=== PATIENT | female | born 1965 | race Hispanic/Latino ===

== ENCOUNTER → 2017-02-10 | Outpatient (CLI) | payer OTHER | END | disposition home or self-care (01) | LOC: GMAB 16:59 | PROVIDERS: ATTEND Family Medicine | DX: D50.9 Iron deficiency anemia, unspecified (principal); E53.8 Deficiency of other specified B group vitamins; Z00.00 Encounter for general adult medical examination without abnormal findings; R30.0 Dysuria; R10.13 Epigastric pain ==

== ENCOUNTER → 2017-02-18 | Outpatient (CLI) | payer OTHER ==
--- NOTE | 2017-02-18 16:21 | CT ---
EXAM DESCRIPTION: Abdoment/Pelvis w/o Contrast CLINICAL HISTORY: 51 years Female, HEMATURIA COMPARISON: None. TECHNIQUE: Transaxial images were obtained without intravenous or oral contrast media. Sagittal and coronal reconstruction was performed.This exam was performed according to our departmental dose-optimization program, which includes automated exposure control, adjustment of the mA and/or kV according to patient size and/or use of iterative reconstruction technique. FINDINGS: The lung bases are clear. Numerous calcified granulomas are seen throughout the spleen. The liver and gallbladder are normal in appearance. No biliary ductal dilatation is observed. No adrenal masses are detected. The pancreas is normal. Imaging of the kidneys reveals no evidence of hydronephrosis mass cyst or calcification. Calcific atherosclerotic changes observed in the abdominal aorta without evidence of aneurysmal dilatation. The appendix is identified and is normal in appearance. No bowel abnormality is seen. No inguinal region abnormality is detected. The patient is post hysterectomy. No stones are seen along the course of the distal ureters. IMPRESSION: 1. Hysterectomy. 2. No urinary tract calcifications are detected. Electronically signed by: Russell Comer MD 02/18/2017 4:20 PM CDT
== END | disposition home or self-care (01) ==
LOC: CT 13:44
PROVIDERS: ATTEND Family Medicine
DX: R31.21 Asymptomatic microscopic hematuria (principal)

== ENCOUNTER → 2017-02-19 | Outpatient (CLI) | payer OTHER | END | disposition home or self-care (01) | LOC: GMA 10:55 | PROVIDERS: ATTEND Nurse Practitioner Family | DX: L65.8 Other specified nonscarring hair loss (principal) ==

== ENCOUNTER → 2017-02-28 | Outpatient (CLI) | payer OTHER | LOC: US 09:03 | PROVIDERS: ATTEND Family Medicine | DX: E04.9 Nontoxic goiter, unspecified (principal) ==

== ENCOUNTER → 2017-03-31 | Outpatient (CLI) | payer OTHER ==
--- NOTE | 2017-04-01 10:12 | CT ---
EXAM DESCRIPTION: Chest w/o Contrast CLINICAL HISTORY: 51 years, Female, COUGH, SOLITARY PULMONARY NODULE COMPARISON: May 07, 2010. TECHNIQUE: Thin-section noncontrast axial CT images are obtained according to our protocol. Reconstructed MPR images are created and reviewed as well. This exam was performed according to our departmental dose-optimization program, which includes automated exposure control, adjustment of the mA and/or kV according to patient size and/or use of iterative reconstruction technique. FINDINGS: Noncontrast imaging of the chest demonstrates a low density peripherally calcified nodule or cyst involving the right thyroid lobe that has enlarged since prior 2010 study and now measures 3 cm in maximal diameter with modest mass effect upon the trachea. Thyroid sonography for further evaluation is recommended. LAD coronary calcification is present with normal sized heart. No pericardial effusion is seen in the upper abdomen is unremarkable with multiple small granulomatous calcifications within the spleen. A triangular approximate 3 cm long by a 13 mm wide noncalcified a tiny 2 mm granuloma at the right lung base along the diaphragm is noted. Density extends from the peripheral margin of the upper left hilum to a subpleural location in the posterior lateral right apical region of the right upper lobe. This is essentially unchanged from 2010 examination and likely represents an area of chronic scarring or mucus plugging and atelectasis. Particularly on thin section sagittal imaging very little change or progression is evident on comparison to lung window images. The area of change appears more prominent on the coronal images but likely this represents slice positioning. Possibility of one or 2 mm of enlargement in the seven year interval since prior study and may be present suggesting slightly greater mucus plugging or scarring but the appearance is not suggestive of a primary malignancy. On sagittal imaging the area of concern appears to extend over an approximate 4 cm length with a maximal transverse diameter of 10 to 13 mm. Additional or new nodules elsewhere within the right right or left lung is not apparent. No bony abnormalities are noted. IMPRESSION: 1. Abnormal right apical region with a persistent somewhat tubular and triangular shaped soft tissue density that extends from the upper right hilum into the posterior lateral right apex with very little if any change from previous 2010 study measuring is much is 4 cm in length and 10 to 13 mm in maximal diameter. An area of mucous plugging and atelectasis or chronic scarring is suspected within the appearance and relative stability very atypical for a pulmonary malignancy. No further evaluation is recommended. 2. 3 cm low-density peripherally calcified nodule or cyst enlarged in the right lobe of the thyroid. Thyroid sonography for further evaluation recommended mass effect upon the trachea is noted. 3. Moderate LAD coronary calcification. 4. Granulomatous calcifications throughout the spleen without focal mass. Electronically signed by: Selvin Peter MD 04/01/2017 10:10 AM CDT
== END | disposition home or self-care (01) ==
LOC: CT 14:04
PROVIDERS: ATTEND Physician Assistant
DX: E04.1 Nontoxic single thyroid nodule (principal); R91.1 Solitary pulmonary nodule; R05 Cough

== ENCOUNTER 2017-08-02 18:33 | Emergency (ER) | payer OTHER ==
--- NOTE | 2017-08-02 19:32 | ED.PDOC ---
History of Present Illness - General Chief Complaint: Fever Stated Complaint: weak,hurts all over Time Seen by Provider: 08/02/17 18:40 Source: patient - History of Present Illness Timing/Duration: yesterday Fever Severity/Quality: subjective Associated Symptoms: chest pain, cough, headache, muscle aches, nausea/vomiting , shortness of breath Review of Systems - Review of Systems Constitutional: States: chills, fever, malaise EENTM: States: nose congestion. Denies: throat pain Respiratory: States: cough, short of breath. Denies: wheezing Cardiology: States: chest pain - mild pleuritic L chest pain Gastrointestinal/Abdominal: States: nausea, vomiting. Denies: abdominal pain, diarrhea Genitourinary: Denies: dysuria Musculoskeletal: States: muscle pain. Denies: neck pain Skin: Denies: rash Neurological: States: headache Endocrine: Denies: flushing, increased thirst Hematologic/Lymphatic: Denies: swollen glands Past Medical History (General) - Patient Medical History Hx Stroke: No Hx Congestive Heart Failure: No Hx Hypertension: Yes Hx Diabetes: Yes Surgical History: Hysterectomy - Vaccination History Hx Tetanus, Diphtheria Vaccination: No Hx Influenza Vaccination: No Hx Pneumococcal Vaccination: Yes - Social History Hx Tobacco Use: No Hx Alcohol Use: No Hx Substance Use: No Hx Substance Use Treatment: No Hx Depression: No - Female History Patient : No Family Medical History - Family History Mother Family History: Unknown Living Status: Unknown Physical Exam - Physical Exam General Appearance: Alert, Lethargic, Well Hydrated Eye Exam: bilateral normal ENT Exam: pharynx normal, nasal congestion Neck: non-tender, full range of motion Respiratory: lungs clear, normal breath sounds, no respiratory distress Cardiovascular/Chest: normal peripheral pulses, regular rate, rhythm, no edema Extremity: no pedal edema Neurologic: alert, normal mood/affect, oriented x 3 Skin Exam: normal color, warm/dry Lymphatic: no adenopathy Departure - Departure Clinical Impression: Influenza A Disposition: Discharge to Home or Self Care Condition: Good Departure Forms: ED Discharge - Pt. Copy, Patient Portal Self Enrollment Referrals: Arsenio Rios MD [Primary Care Provider] - 1-2 Weeks Prescriptions: Oseltamivir Capsule [Tamiflu] 75 mg PO BID 5 Days #10 capsule Home Medications: Ambulatory Orders Lisinopril 40 mg PO BEDTIME 08/02/17 Oseltamivir Capsule [Tamiflu] 75 mg PO BID 5 Days #10 capsule 08/02/17 SITagliptin [Januvia] 50 mg PO DAILY 08/02/17
[2017-08-02] MEDS ORDERED: ONDANSETRON 4 MG TAB PO ONE (19:33)
[2017-08-02] MEDS ORDERED: KETOROLAC TROMETHAMINE INJ 60 MG/2 ML VIAL IM ONE (19:34)
--- NOTE | 2017-08-02 20:24 | RAD ---
EXAM DESCRIPTION: Chest,1 View CLINICAL HISTORY: cough COMPARISON: September 10, 2010 FINDINGS: Cardiac silhouette is within normal limits. There is no focal parenchymal or pleural disease. There is no acute osseous process visualized. 8 mm nodular opacity projecting of the right upper lung is unchanged compared with the prior exam. IMPRESSION: No evidence of acute cardiopulmonary disease. Electronically signed by: Simón Lugo MD 08/02/2017 8:22 PM [employer]
[2017-08-02 21:03] VITALS: BP 185/96; TEMP 99.9; O2SAT 96
== END 2017-08-02 21:06 | disposition home or self-care (01) ==
LOC: ER 18:33
DX: J10.1 Influenza due to other identified influenza virus with other respiratory manifestations (principal)
CPT/HCPCS: 36416; 71045; 82948; 87502; J1885

== ENCOUNTER → 2017-11-26 | Outpatient (CLI) | payer OTHER | LOC: LAB.O 11:13 | PROVIDERS: ATTEND Internal Medicine Nephrology | DX: N18.4 Chronic kidney disease, stage 4 (severe) (principal) ==

== ENCOUNTER 2018-05-05 04:34 | Emergency (ER) | payer OTHER ==
[2018-05-05 04:52] VITALS: TEMP 97.9
[2018-05-05] MEDS ORDERED: cloNIDine HCL 0.1 MG TAB PO ONE (05:32)
--- NOTE | 2018-05-05 05:40 | ED.PDOC ---
History of Present Illness - General Chief Complaint: Eye Problems Stated Complaint: blurred vision Time Seen by Provider: 05/05/18 05:11 Source: patient, family Exam Limitations: no limitations - History of Present Illness Initial Comments: the patient is a 52-year-old female presenting to the emergency room with decreased vision out of her right eye when waking up this morning. The patient reports that she essentially lost vision in her left eye 2-4 weeks ago. She can see light but no real visual acuity of the left eye. The right eye this morning she reports decreased central vision with some maintenance of the periphery. There is no pain. No headache. No altered mental status. The patient does have some hypertension and is a dialysis patient. She is scheduled for dialysis midday today. Timing/Duration: 4-6 hours Severity: moderate Improving Factors: nothing Worsening Factors: nothing Associated Symptoms: denies symptoms Allergies/Adverse Reactions: Allergies NO KNOWN ALLERGY Allergy (Verified 05/31/16 22:02) Home Medications: Ambulatory Orders Lisinopril 40 mg PO BEDTIME 08/02/17 Amlodipine Besylate 10 mg PO DAILY 05/05/18 Escitalopram [Lexapro] 10 mg PO DAILY 05/05/18 Glipizide 10 mg PO AC 05/05/18 Review of Systems - Review of Systems Constitutional: States: no symptoms reported EENTM: States: see HPI Respiratory: States: no symptoms reported Cardiology: States: no symptoms reported Gastrointestinal/Abdominal: States: no symptoms reported Genitourinary: States: no symptoms reported Musculoskeletal: States: no symptoms reported Skin: States: no symptoms reported Neurological: States: other - chronic neuropathy Endocrine: States: no symptoms reported All other Systems: No Change from Baseline Past Medical History (General) - Patient Medical History Hx Seizures: No Hx Stroke: No Hx Dementia: No Hx Asthma: No Hx of COPD: No Hx Cardiac Disorders: No Hx Congestive Heart Failure: No Hx Pacemaker: No Hx Hypertension: Yes Hx Thyroid Disease: No Hx Diabetes: Yes Hx Gastroesophageal Reflux: No Hx Renal Disease: Yes - dialysis Hx Cancer: No Hx of HIV: No Hx Hepatitis C: No Hx MRSA: No Surgical History: Hysterectomy - Vaccination History Hx Tetanus, Diphtheria Vaccination: Yes Hx Influenza Vaccination: Yes Hx Pneumococcal Vaccination: Yes - Social History Hx Tobacco Use: No Hx Alcohol Use: No Hx Substance Use: No Hx Substance Use Treatment: No Hx Depression: No - Female History Patient : No Family Medical History - Family History Mother Family History: Unknown Living Status: Unknown Physical Exam - Physical Exam General Appearance: Alert, Anxious Eye Exam: bilateral other - extraocular movements are intact. Pupils are reactive still bilaterally. The patient has significant decreased red reflex from most of the posterior aspect of the left eye. She has small areas of decreased red reflex to the right eye. Ears, Nose, Throat: hearing grossly normal, normal pharynx Neck: full range of motion, supple Respiratory: lungs clear, normal breath sounds, no respiratory distress, no accessory muscle use Cardiovascular/Chest: normal peripheral pulses, no edema, other - regular rate once patient calms down Peripheral Pulses: radial,right: 2+, radial,left: 2+ Gastrointestinal/Abdominal: non tender, soft Rectal Exam: deferred Back Exam: no CVA tenderness, no vertebral tenderness Extremity: non-tender, normal inspection, no pedal edema, normal capillary refill Neurologic: learning and development director II-XII nml as tested, alert, normal mood/affect, oriented x 3 Skin Exam: normal color Comments: Vital Signs - 24 hr 05/05/18 04:47 Temperature 97.9 F Pulse Rate [ 110 H monitor] Respiratory 16 Rate Blood Pressure 170/107 [Left Arm] O2 Sat by Pulse 99 Oximetry Progress - Progress Progress: 05/05/18 05:43 the patient is a 52-year-old female presented to the emergency room secondary to decreased central vision of the right eye starting early this morning. This is following decreased general vision of the left eye from 2-4 weeks ago. The patient does have hypertension, diabetes and renal failure. She is moderately hypertensive here but at least part of that is anxiety. The patient has to go to dialysis today. I do believe the patient has significant bilateral retinal pathology. I'm uncertain of the specific source. She does need to be evaluated as soon as possible by ophthalmology to hopefully find some vision sparing treatment for her depending on the exact diagnosis. There are currently no ERs in the 150 [place] radius with ophthalmology division sergeant on an emergency status that are currently accepting patients, as was made apparent by attempts to find one earlier today. The best option for her is an urgent referral to ophthalmology in [place] with either Dr. Linn, Dr. Veloz or Dr. Alves. The patient will likely not be able to go today as she does have mandatory dialysis. She does obviously need to control her blood sugars well and her blood pressure as well as possible. I do not believe that she has elevated intraocular pressures however I do not have a functioning Jim-Pen to test that with. my limited eye exam with ophthalmoscope here does not really help narrow down the pathology any further. the district agent office will have to be contacted for referral during business hours. They're not open for referral here in the middle of the night. The patient understands this. The patient will need to take this information to her primary care doctor in the morning to get the referral process started so that she can hopefully be seen later today or early tomorrow by ophthalmology. 05/05/18 05:48 Departure - Departure Clinical Impression: Visual disturbance Disposition: Discharge to Home or Self Care Condition: Fair Departure Forms: ED Discharge - Pt. Copy, Patient Portal Self Enrollment Diet: diabetic diet Activity: increase activity as tolerated Referrals: AUSTIN CHOUDHARY MD [Primary Care Provider] - 1-2 Days Home Medications: Ambulatory Orders Lisinopril 40 mg PO BEDTIME 08/02/17 Amlodipine Besylate 10 mg PO DAILY 05/05/18 Escitalopram [Lexapro] 10 mg PO DAILY 05/05/18 Glipizide 10 mg PO AC 05/05/18 Additional Instructions: the patient is a 52-year-old female presented to the emergency room secondary to decreased central vision of the right eye starting early this morning. This is following decreased general vision of the left eye from 2-4 weeks ago. The patient does have hypertension, diabetes and renal failure. She is moderately hypertensive here but at least part of that is anxiety. The patient has to go to dialysis today. I do believe the patient has significant bilateral retinal pathology. I'm uncertain of the specific source. She does need to be evaluated as soon as possible by ophthalmology to hopefully find some vision sparing treatment for her depending on the exact diagnosis. There are currently no ERs in the [place] radius with ophthalmology division sergeant on an emergency status that are currently accepting patients, as was made apparent by attempts to find one earlier today. The best option for her is an urgent referral to ophthalmology in [place] with either Dr. Linn, Dr. Veloz or Dr. Alves. The patient will likely not be able to go today as she does have mandatory dialysis. She does obviously need to control her blood sugars well and her blood pressure as well as possible. I do not believe that she has elevated intraocular pressures however I do not have a functioning Jim-Pen to test that with. my limited eye exam with ophthalmoscope here does not really help narrow down the pathology any further. the district agent office will have to be contacted for referral during business hours. They're not open for referral here in the middle of the night. The patient understands this. The patient will need to take this information to her primary care doctor in the morning to get the referral process started so that she can hopefully be seen later today or early tomorrow by ophthalmology. unfortunately there is little more that I can offer her here tonight.
[2018-05-05 05:58] VITALS: BP 137/99; O2SAT 100
== END 2018-05-05 06:01 | disposition home or self-care (01) ==
LOC: ER 04:34
DX: H53.8 Other visual disturbances (principal); I12.9 Hypertensive chronic kidney disease with stage 1 through stage 4 chronic kidney disease, or unspecified chronic kidney disease; E11.22 Type 2 diabetes mellitus with diabetic chronic kidney disease; N18.6 End stage renal disease; Z99.2 Dependence on renal dialysis

== ENCOUNTER 2018-12-26 | Emergency (ER) | payer OTHER | END 2018-12-26 14:15 | disposition short-term general hospital (02) | CPT/HCPCS: 36415; 71045; 80048; 80076; 82550; 82553; 83880; 84484; 85025; 85610; 85730; 93005; J2405; J7050 ==

== ENCOUNTER 2019-01-14 07:24 | Emergency (ER) | payer OTHER ==
--- NOTE | 2019-01-14 07:32 | ED.PDOC ---
History of Present Illness - General Chief Complaint: Unresponsive Stated Complaint: ams Time Seen by Provider: 01/14/19 07:28 Source: EMS Exam Limitations: clinical condition - History of Present Illness Initial Comments: Jonna Huynh 53 y/o female was brought by EMS after family called up unable to wake patient.On Ems arrival at the house FSBS taken was 36 given D50 1 amp was found to ope neyes on painful stimuli and moves her torso.On her arrival she was more alert ,but shivering BS -136 after D50.She answered question,no dysartrhia.She has history of DM2-ESRD-HD not on insulin but oral medications for her diabetes.goes to dialysis [facility]. Timing/Duration: 1-3 hours Episode Description: see hpi Improving Factors: other - see hpi Worsening Factors: nothing Associated Symptoms: other - AMS Allergies/Adverse Reactions: Allergies NO KNOWN ALLERGY Allergy (Verified 05/31/16 22:02) Home Medications: Ambulatory Orders Lisinopril 40 mg PO BID 08/02/17 Glipizide 5 mg PO DAILY 05/05/18 ALPRAZolam [Xanax] 0.25 mg PO Q8HR PRN 12/26/18 Atorvastatin Calcium [Lipitor] 20 mg PO DAILY 12/26/18 Clonidine HCl 0.1 mg PO TID 12/26/18 Amlodipine Besylate 5 mg PO DAILY 01/14/19 Aspirin [Aspirin EC Low Dose] 81 mg PO DAILY 01/14/19 Hydroxyzine HCl [Hydroxyzine Hydrochloride] 25 mg PO BID 01/14/19 Review of Systems - Review of Systems Constitutional: States: no symptoms reported EENTM: States: no symptoms reported Respiratory: States: no symptoms reported Cardiology: States: no symptoms reported Gastrointestinal/Abdominal: States: no symptoms reported Skin: States: no symptoms reported Neurological: States: see HPI, other - AMS Endocrine: States: other - see hpi Past Medical History (General) - Patient Medical History Hx Seizures: No Hx Stroke: No Hx Dementia: No Hx Asthma: No Hx of COPD: No Hx Cardiac Disorders: No Hx Congestive Heart Failure: No Hx Pacemaker: No Hx Hypertension: Yes Hx Thyroid Disease: No Hx Diabetes: Yes Hx Gastroesophageal Reflux: No Hx Renal Disease: Yes - dialysis Hx Cancer: No Hx of HIV: No Hx Hepatitis C: No Hx MRSA: No Hx Other PMH: Yes - right retinal detachment Surgical History: other - hystterectomy,infusaport,knee,right eye - Vaccination History Hx Tetanus, Diphtheria Vaccination: Yes Hx Influenza Vaccination: Yes Hx Pneumococcal Vaccination: Yes - Social History Hx Tobacco Use: No Hx Alcohol Use: No Hx Substance Use: No Hx Substance Use Treatment: No Hx Depression: No - Female History Patient : No Family Medical History - Family History Mother Family History: Unknown Living Status: Unknown Hx Family Hypertension: Yes - multiple family members Hx Family Diabetes: Yes - multiple family members Physical Exam - Physical Exam General Appearance: Other - somnolent Eye Exam: bilateral other - blurred vision bilaterally;CF ENT Exam: normal ENT inspection, hearing grossly normal, pharynx normal Neck: supple, normal inspection, trachea midline Respiratory: chest non-tender, lungs clear, normal breath sounds, no respiratory distress Cardiovascular/Chest: normal peripheral pulses, regular rate, rhythm, no murmur Peripheral Pulses: radial,right: 2+, radial,left: 2+ Gastrointestinal/Abdominal: non tender, soft Extremities Exam: edema - 1+ bilaterally Mental Status: other - somnolent spinner frame Exam: normal hearing, normal speech, PERRL Motor/Sensory: no motor deficit, no sensory deficit, no pronator drift Skin Exam: normal color, warm/dry Progress - Progress Progress: 01/14/19 09:01 01/14/19 07:33 Sodium Chloride 0.9% 1000ML [Ns 1000 ml] 1,000 ml IVS .QD Laboratory Results - last 24 hr 01/14/19 01/14/19 01/14/19 07:50 07:50 07:51 WBC 13.0 H RBC 4.07 L Hgb 13.4 Hct 40.5 MCV 99.5 H MCH 32.8 H MCHC 33.0 RDW 16.7 H Plt Count 338 MPV 7.7 Absolute Neuts (auto) 10.00 H Absolute Lymphs (auto) 2.10 Absolute Monos (auto) 0.80 Absolute Eos (auto) 0.00 Absolute Basos (auto) 0.10 Neutrophils % 76.9 Lymphocytes % 16.1 L Monocytes % 6.3 Eosinophils % 0.2 L Basophils % 0.5 PT 12.2 H INR 1.22 H PTT (SP) 33.6 H Sodium 135 Potassium 5.0 Chloride 92 L Carbon Dioxide 23 Anion Gap 25.0 H BUN 38 H Creatinine 5.40 H BUN/Creatinine Ratio 7.0 L POC Glucose 100 Random Glucose 151 H Serum Osmolality 282.1 Lactic Acid 4.3 H* Calcium 9.7 Magnesium 2.4 Total Bilirubin 0.6 Direct Bilirubin 0.1 Indirect Bilirubin 0.5 AST 30 ALT 23 Alkaline Phosphatase 143 H Creatine Kinase 63 CK-MB (CK-2) 5.5 H* CK-MB (CK-2) % Not Reportable Troponin I 0.02 Serum Total Protein 8.5 H Albumin 3.5 Urine Color Urine Appearance Urine pH Ur Specific [place] Urine Protein Urine Glucose (UA) Urine Ketones Urine Blood Urine Nitrite Urine Bilirubin Urine Urobilinogen Ur Leukocyte Esterase Urine RBC Urine WBC Ur Epithelial Cells Urine Bacteria 01/14/19 08:33 WBC RBC Hgb Hct MCV MCH MCHC RDW Plt Count MPV Absolute Neuts (auto) Absolute Lymphs (auto) Absolute Monos (auto) Absolute Eos (auto) Absolute Basos (auto) Neutrophils % Lymphocytes % Monocytes % Eosinophils % Basophils % PT INR PTT (SP) Sodium Potassium Chloride Carbon Dioxide Anion Gap BUN Creatinine BUN/Creatinine Ratio POC Glucose Random Glucose Serum Osmolality Lactic Acid Calcium Magnesium Total Bilirubin Direct Bilirubin Indirect Bilirubin AST ALT Alkaline Phosphatase Creatine Kinase CK-MB (CK-2) CK-MB (CK-2) % Troponin I Serum Total Protein Albumin Urine Color Yellow Urine Appearance Clear Urine pH 8.5 H Ur Specific [place] 1.020 Urine Protein >=300 H Urine Glucose (UA) 100 H Urine Ketones Negative Urine Blood Trace-intact H Urine Nitrite Negative Urine Bilirubin Negative Urine Urobilinogen 0.2 Ur Leukocyte Esterase Negative Urine RBC 1-3 Urine WBC 0-1 Ur Epithelial Cells 1-3 Urine Bacteria 0 01/14/19 10:49 01/14/19 07:33 Sodium Chloride 0.9% 1000ML [Ns 1000 ml] 1,000 ml IVS .QD 01/14/19 10:15 Be Our Guest Tray (BOG) ONCE Laboratory Results - last 24 hr 01/14/19 01/14/19 01/14/19 07:50 07:50 07:51 WBC 13.0 H RBC 4.07 L Hgb 13.4 Hct 40.5 MCV 99.5 H MCH 32.8 H MCHC 33.0 RDW 16.7 H Plt Count 338 MPV 7.7 Absolute Neuts (auto) 10.00 H Absolute Lymphs (auto) 2.10 Absolute Monos (auto) 0.80 Absolute Eos (auto) 0.00 Absolute Basos (auto) 0.10 Neutrophils % 76.9 Lymphocytes % 16.1 L Monocytes % 6.3 Eosinophils % 0.2 L Basophils % 0.5 PT 12.2 H INR 1.22 H PTT (SP) 33.6 H Sodium 135 Potassium 5.0 Chloride 92 L Carbon Dioxide 23 Anion Gap 25.0 H BUN 38 H Creatinine 5.40 H BUN/Creatinine Ratio 7.0 L POC Glucose 100 Random Glucose 151 H Serum Osmolality 282.1 Lactic Acid 4.3 H* Calcium 9.7 Magnesium 2.4 Total Bilirubin 0.6 Direct Bilirubin 0.1 Indirect Bilirubin 0.5 AST 30 ALT 23 Alkaline Phosphatase 143 H Creatine Kinase 63 CK-MB (CK-2) 5.5 H* CK-MB (CK-2) % Not Reportable Troponin I 0.02 Serum Total Protein 8.5 H Albumin 3.5 Urine Color Urine Appearance Urine pH Ur Specific [place] Urine Protein Urine Glucose (UA) Urine Ketones Urine Blood Urine Nitrite Urine Bilirubin Urine Urobilinogen Ur Leukocyte Esterase Urine RBC Urine WBC Ur Epithelial Cells Urine Bacteria 01/14/19 01/14/19 01/14/19 08:33 10:31 10:31 WBC RBC Hgb Hct MCV MCH MCHC RDW Plt Count MPV Absolute Neuts (auto) Absolute Lymphs (auto) Absolute Monos (auto) Absolute Eos (auto) Absolute Basos (auto) Neutrophils % Lymphocytes % Monocytes % Eosinophils % Basophils % PT INR PTT (SP) Sodium 133 L Potassium 5.0 Chloride 94 L Carbon Dioxide 25 Anion Gap 19.0 H BUN 38 H Creatinine 5.29 H BUN/Creatinine Ratio 7.2 L POC Glucose Random Glucose 64 L D Serum Osmolality 273.5 L Lactic Acid 1.8 Calcium 8.9 Magnesium Total Bilirubin Direct Bilirubin Indirect Bilirubin AST ALT Alkaline Phosphatase Creatine Kinase CK-MB (CK-2) CK-MB (CK-2) % Troponin I Serum Total Protein Albumin Urine Color Yellow Urine Appearance Clear Urine pH 8.5 H Ur Specific [place] 1.020 Urine Protein >=300 H Urine Glucose (UA) 100 H Urine Ketones Negative Urine Blood Trace-intact H Urine Nitrite Negative Urine Bilirubin Negative Urine Urobilinogen 0.2 Ur Leukocyte Esterase Negative Urine RBC 1-3 Urine WBC 0-1 Ur Epithelial Cells 1-3 Urine Bacteria 0 Patients temporary elevation of lactic acidosis from her hypoglycemia 01/14/19 12:24 Had eaten Lunch with normal blood sugar - Results/Orders Results/Orders: 01/14/19 07:33 Sodium Chloride 0.9% 1000ML [Ns 1000 ml] 1,000 ml IVS .QD 01/14/19 10:15 Be Our Guest Tray (BOG) ONCE Laboratory Results - last 24 hr 01/14/19 01/14/19 01/14/19 07:50 07:50 07:51 WBC 13.0 H RBC 4.07 L Hgb 13.4 Hct 40.5 MCV 99.5 H MCH 32.8 H MCHC 33.0 RDW 16.7 H Plt Count 338 MPV 7.7 Absolute Neuts (auto) 10.00 H Absolute Lymphs (auto) 2.10 Absolute Monos (auto) 0.80 Absolute Eos (auto) 0.00 Absolute Basos (auto) 0.10 Neutrophils % 76.9 Lymphocytes % 16.1 L Monocytes % 6.3 Eosinophils % 0.2 L Basophils % 0.5 PT 12.2 H INR 1.22 H PTT (SP) 33.6 H Sodium 135 Potassium 5.0 Chloride 92 L Carbon Dioxide 23 Anion Gap 25.0 H BUN 38 H Creatinine 5.40 H BUN/Creatinine Ratio 7.0 L POC Glucose 100 Random Glucose 151 H Serum Osmolality 282.1 Lactic Acid 4.3 H* Calcium 9.7 Magnesium 2.4 Total Bilirubin 0.6 Direct Bilirubin 0.1 Indirect Bilirubin 0.5 AST 30 ALT 23 Alkaline Phosphatase 143 H Creatine Kinase 63 CK-MB (CK-2) 5.5 H* CK-MB (CK-2) % Not Reportable Troponin I 0.02 Serum Total Protein 8.5 H Albumin 3.5 Urine Color Urine Appearance Urine pH Ur Specific [place] Urine Protein Urine Glucose (UA) Urine Ketones Urine Blood Urine Nitrite Urine Bilirubin Urine Urobilinogen Ur Leukocyte Esterase Urine RBC Urine WBC Ur Epithelial Cells Urine Bacteria 01/14/19 01/14/19 01/14/19 08:33 10:31 10:31 WBC RBC Hgb Hct MCV MCH MCHC RDW Plt Count MPV Absolute Neuts (auto) Absolute Lymphs (auto) Absolute Monos (auto) Absolute Eos (auto) Absolute Basos (auto) Neutrophils % Lymphocytes % Monocytes % Eosinophils % Basophils % PT INR PTT (SP) Sodium 133 L Potassium 5.0 Chloride 94 L Carbon Dioxide 25 Anion Gap 19.0 H BUN 38 H Creatinine 5.29 H BUN/Creatinine Ratio 7.2 L POC Glucose Random Glucose 64 L D Serum Osmolality 273.5 L Lactic Acid 1.8 Calcium 8.9 Magnesium Total Bilirubin Direct Bilirubin Indirect Bilirubin AST ALT Alkaline Phosphatase Creatine Kinase CK-MB (CK-2) CK-MB (CK-2) % Troponin I Serum Total Protein Albumin Urine Color Yellow Urine Appearance Clear Urine pH 8.5 H Ur Specific [place] 1.020 Urine Protein >=300 H Urine Glucose (UA) 100 H Urine Ketones Negative Urine Blood Trace-intact H Urine Nitrite Negative Urine Bilirubin Negative Urine Urobilinogen 0.2 Ur Leukocyte Esterase Negative Urine RBC 1-3 Urine WBC 0-1 Ur Epithelial Cells 1-3 Urine Bacteria 0 01/14/19 12:03 WBC RBC Hgb Hct MCV MCH MCHC RDW Plt Count MPV Absolute Neuts (auto) Absolute Lymphs (auto) Absolute Monos (auto) Absolute Eos (auto) Absolute Basos (auto) Neutrophils % Lymphocytes % Monocytes % Eosinophils % Basophils % PT INR PTT (SP) Sodium Potassium Chloride Carbon Dioxide Anion Gap BUN Creatinine BUN/Creatinine Ratio POC Glucose 93 Random Glucose Serum Osmolality Lactic Acid Calcium Magnesium Total Bilirubin Direct Bilirubin Indirect Bilirubin AST ALT Alkaline Phosphatase Creatine Kinase CK-MB (CK-2) CK-MB (CK-2) % Troponin I Serum Total Protein Albumin Urine Color Urine Appearance Urine pH Ur Specific [place] Urine Protein Urine Glucose (UA) Urine Ketones Urine Blood Urine Nitrite Urine Bilirubin Urine Urobilinogen Ur Leukocyte Esterase Urine RBC Urine WBC Ur Epithelial Cells Urine Bacteria - EKG/XRAY/CT XRAY: chest - cardiomegaly Departure - Departure Clinical Impression: Awareness alteration, transient, Hypoglycemia due to type 2 diabetes mellitus Time of Disposition: 12:26 Disposition: Discharge to Home or Self Care Departure Forms: ED Discharge - Pt. Copy, Patient Portal Self Enrollment Referrals: AUSTIN CHOUDHARY MD [Primary Care Provider] - 1-2 Weeks Home Medications: Ambulatory Orders Lisinopril 40 mg PO BID 08/02/17 Glipizide 5 mg PO DAILY 05/05/18 ALPRAZolam [Xanax] 0.25 mg PO Q8HR PRN 12/26/18 Atorvastatin Calcium [Lipitor] 20 mg PO DAILY 12/26/18 Clonidine HCl 0.1 mg PO TID 12/26/18 Amlodipine Besylate 5 mg PO DAILY 01/14/19 Aspirin [Aspirin EC Low Dose] 81 mg PO DAILY 01/14/19 Hydroxyzine HCl [Hydroxyzine Hydrochloride] 25 mg PO BID 01/14/19 Additional Instructions: NEED TO HOLD GLIPIZIDE UNTIL SEEN BY PRIMARY MD;NEED TO FINGER STICK BLOOD SUGAR AM/PM then recored reading show to primary MD;Continue with the rest of medications
[2019-01-14] MEDS ORDERED: SODIUM CHLORIDE 0.9% 1000ML 1,000 ML IVS PRN (07:33)
--- NOTE | 2019-01-14 08:11 | RAD ---
EXAM DESCRIPTION: Chest,1 View CLINICAL HISTORY: [facility] COMPARISON: 26 December 2018 TECHNIQUE: AP portable chest FINDINGS: Cardiomegaly is evident. The lungs are clear. No pleural fluid is seen. A tunnel dialysis catheter seen in place on the right. The distal tip is observed in the atrial caval junction. IMPRESSION: 1. Cardiomegaly is observed without evidence of congestive heart failure. 2. A tunnel dialysis catheter seen on the right. Electronically signed by: Russell Comer MD 01/14/2019 8:09 AM CDT
[2019-01-14] MEDS ORDERED: GLUCOSE GEL 31 GM TUBE PO ONE (10:52)
[2019-01-14 12:41] VITALS: BP 181/108; TEMP 97.4; O2SAT 95
== END 2019-01-14 12:40 | disposition home or self-care (01) ==
LOC: ER 07:24
DX: R40.4 Transient alteration of awareness (principal); E11.649 Type 2 diabetes mellitus with hypoglycemia without coma; I12.9 Hypertensive chronic kidney disease with stage 1 through stage 4 chronic kidney disease, or unspecified chronic kidney disease; E11.22 Type 2 diabetes mellitus with diabetic chronic kidney disease; N18.9 Chronic kidney disease, unspecified; Z99.2 Dependence on renal dialysis; Z79.82 Long term (current) use of aspirin; Z79.899 Other long term (current) drug therapy

== ENCOUNTER 2019-01-31 16:44 | Emergency (ER) | payer OTHER, MEDICARE ==
--- NOTE | 2019-01-31 17:07 | ED.PDOC ---
History of Present Illness - General Chief Complaint: Respiratory Problem Stated Complaint: shortness of breath Time Seen by Provider: 01/31/19 16:55 Source: patient, family Exam Limitations: no limitations - History of Present Illness Initial Comments: Patient presents with dyspnea for 14 hours. 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 She has had multiple episodes of dyspnea like this and says that it has usually been anxiety. She takes Benadryl normally and it goes away. This time it hasn't helped. She has NIDDM. Denies chest pain or cardiac history. Has frequent bipedal edema from fluid overload. No other complaints. Timing/Duration: other - 14 hours Severity: mild Improving Factors: nothing Worsening Factors: nothing Associated Symptoms: denies symptoms Allergies/Adverse Reactions: Allergies NO KNOWN ALLERGY Allergy (Verified 05/31/16 22:02) Home Medications: Ambulatory Orders Lisinopril 40 mg PO DAILY 08/02/17 Glipizide 2.5 mg PO DAILY 05/05/18 Aspirin [Aspirin EC Low Dose] 81 mg PO DAILY 01/14/19 Calcium 600 mg PO DAILY 01/31/19 Clonazepam 1 mg PO PRN 01/31/19 diphenhydrAMINE HCL [Benadryl] 25 mg PO BEDTIME 01/31/19 Review of Systems - Review of Systems Constitutional: States: no symptoms reported EENTM: States: no symptoms reported Respiratory: States: see HPI Cardiology: States: edema Gastrointestinal/Abdominal: States: no symptoms reported Genitourinary: States: no symptoms reported Musculoskeletal: States: no symptoms reported Skin: States: no symptoms reported Neurological: States: anxiety Endocrine: States: no symptoms reported Hematologic/Lymphatic: States: no symptoms reported Past Medical History (General) - Patient Medical History Hx Seizures: No Hx Stroke: No Hx Dementia: No Hx Asthma: No Hx of COPD: No Hx Cardiac Disorders: No Hx Congestive Heart Failure: No Hx Pacemaker: No Hx Hypertension: Yes Hx Thyroid Disease: No Hx Diabetes: Yes Hx Gastroesophageal Reflux: No Hx Renal Disease: Yes - dialysis Hx Cancer: No Hx of HIV: No Hx Hepatitis C: No Hx MRSA: No Surgical History: Hysterectomy - Vaccination History Hx Tetanus, Diphtheria Vaccination: Yes Hx Influenza Vaccination: Yes Hx Pneumococcal Vaccination: Yes - Social History Hx Tobacco Use: No Hx Alcohol Use: No Hx Substance Use: No Hx Substance Use Treatment: No Hx Depression: No - Female History Patient : No Family Medical History - Family History Mother Family History: Unknown Living Status: Unknown Hx Family Hypertension: Yes - multiple family members Hx Family Diabetes: Yes - multiple family members Physical Exam - Physical Exam General Appearance: Alert Eye Exam: bilateral normal Ears, Nose, Throat: hearing grossly normal, normal ENT inspection Neck: non-tender, full range of motion, supple Respiratory: lungs clear, normal breath sounds Cardiovascular/Chest: normal peripheral pulses, regular rate, rhythm, other - 1+ pitting edema bilateral LEs to proximal tibia Gastrointestinal/Abdominal: normal bowel sounds, non tender, soft Back Exam: normal inspection, no CVA tenderness Extremity: normal range of motion, non-tender, normal inspection Neurologic: no motor/sensory deficits, alert, normal mood/affect, oriented x 3 Skin Exam: normal color Lymphatic: no adenopathy Progress - Progress Progress: 01/31/19 17:58 Laboratory Tests 01/31/19 01/31/19 01/31/19 17:02 17:02 17:03 WBC 8.1 RBC 3.43 L Hgb 11.4 L Hct 34.6 L MCV 100.9 H MCH 33.3 H MCHC 33.0 RDW 17.1 H Plt Count 264 MPV 7.7 Absolute Neuts (auto) 6.10 Absolute Lymphs (auto) 1.40 Absolute Monos (auto) 0.40 Absolute Eos (auto) 0.20 Absolute Basos (auto) 0.10 Neutrophils % 75.1 Lymphocytes % 16.8 L Monocytes % 5.1 Eosinophils % 2.0 Basophils % 1.0 PT INR PTT (SP) Sodium 135 Potassium 5.5 H Chloride 93 L Carbon Dioxide 30 Anion Gap 17.5 BUN 43 H Creatinine 4.35 H BUN/Creatinine Ratio 9.9 L Random Glucose 157 H Serum Osmolality 284.2 Calcium 9.7 Total Bilirubin 1.3 H AST 38 ALT 36 Alkaline Phosphatase 191 H Creatine Kinase 63 CK-MB (CK-2) 3.5 CK-MB (CK-2) % Not Reportable Troponin I 0.04 B-Natriuretic Peptide > 5000.0 H* Serum Total Protein 8.6 H Albumin 3.7 Globulin 4.9 H Albumin/Globulin Ratio 0.8 L 01/31/19 17:03 WBC RBC Hgb Hct MCV MCH MCHC RDW Plt Count MPV Absolute Neuts (auto) Absolute Lymphs (auto) Absolute Monos (auto) Absolute Eos (auto) Absolute Basos (auto) Neutrophils % Lymphocytes % Monocytes % Eosinophils % Basophils % PT 12.6 H INR 1.26 H PTT (SP) 28.1 Sodium Potassium Chloride Carbon Dioxide Anion Gap BUN Creatinine BUN/Creatinine Ratio Random Glucose Serum Osmolality Calcium Total Bilirubin AST ALT Alkaline Phosphatase Creatine Kinase CK-MB (CK-2) CK-MB (CK-2) % Troponin I B-Natriuretic Peptide Serum Total Protein Albumin Globulin Albumin/Globulin Ratio BNP 5000. CXR showed non-specific central peribronchial cuffing. EKG showed NSR with no ST changes nor T wave inversions. No LBBB. Troponin negative. Potassium 5.5. Patient is fluid overloading and may need emergent dialysis. Transferred to [facility] Accepted by Dr. Barnes. 01/31/19 17:59 Departure - Departure Clinical Impression: Hypertension with fluid overload Disposition: Transfer to Hospital Condition: Fair Departure Forms: ED Discharge - Pt. Copy, Patient Portal Self Enrollment Diet: other - NPO Activity: other - as per hospitalist Referrals: AUSTIN CHOUDHARY MD [Primary Care Provider] - 1-2 Weeks Home Medications: Ambulatory Orders Lisinopril 40 mg PO DAILY 08/02/17 Glipizide 2.5 mg PO DAILY 05/05/18 Aspirin [Aspirin EC Low Dose] 81 mg PO DAILY 01/14/19 Calcium 600 mg PO DAILY 01/31/19 Clonazepam 1 mg PO PRN 01/31/19 diphenhydrAMINE HCL [Benadryl] 25 mg PO BEDTIME 01/31/19
--- NOTE | 2019-01-31 17:39 | RAD ---
EXAM DESCRIPTION: Chest x-ray,2 Views CLINICAL HISTORY: Shortness of breath COMPARISON: January 14, 2019 FINDINGS: Cardiac silhouette is unchanged compared with the prior exam. There is a right central catheter with the tip ending at the atrial caval junction. There is mild central peribronchial wall thickening. There is no focal parenchymal or pleural disease. There is no acute osseous process visualized. IMPRESSION: Nonspecific central peribronchial cuffing could be secondary to mild edema versus reactive airway disease. Electronically signed by: Simón Lugo MD 01/31/2019 5:37 PM CDT
[2019-01-31 18:52] VITALS: BP 192/115; TEMP 97.4; O2SAT 99
== END 2019-01-31 18:52 | disposition short-term general hospital (02) ==
LOC: ER 16:44
DX: I12.0 Hypertensive chronic kidney disease with stage 5 chronic kidney disease or end stage renal disease (principal); E87.79 Other fluid overload; R06.02 Shortness of breath; E11.22 Type 2 diabetes mellitus with diabetic chronic kidney disease; N18.5 Chronic kidney disease, stage 5; Z99.2 Dependence on renal dialysis; Z79.82 Long term (current) use of aspirin; Z79.899 Other long term (current) drug therapy

== ENCOUNTER 2019-02-10 14:22 | Emergency (ER) | payer OTHER, MEDICARE ==
--- NOTE | 2019-02-10 15:35 | ED.PDOC ---
History of Present Illness - General Chief Complaint: General Stated Complaint: right arm pain Time Seen by Provider: 02/10/19 15:18 Source: patient Exam Limitations: no limitations - History of Present Illness Initial Comments: Jonna Huynh 53 y/o female came to er with bulging dialysis shunt right forearm stating used to be flat;Has HX of CKD-HD.Also has some burning sensation on the area.Went to local dialysis center here in [place] was advised to come to ER;Has appointment with Dr. Armstrong who did the shunt. Timing/Duration: 24 hours Severity: moderate Improving Factors: nothing Worsening Factors: nothing Associated Symptoms: other - see hpi Allergies/Adverse Reactions: Allergies NO KNOWN ALLERGY Allergy (Verified 05/31/16 22:02) Home Medications: Ambulatory Orders Lisinopril 40 mg PO DAILY 08/02/17 Glipizide 2.5 mg PO DAILY 05/05/18 Aspirin [Aspirin EC Low Dose] 81 mg PO DAILY 01/14/19 Calcium 600 mg PO DAILY 01/31/19 Clonazepam 1 mg PO PRN 01/31/19 diphenhydrAMINE HCL [Benadryl] 25 mg PO BEDTIME 01/31/19 Review of Systems - Review of Systems Musculoskeletal: States: see HPI, muscle pain All other Systems: Reviewed and Negative, No Change from Baseline Past Medical History (General) - Patient Medical History Hx Seizures: No Hx Stroke: No Hx Dementia: No Hx Asthma: No Hx of COPD: No Hx Cardiac Disorders: No Hx Congestive Heart Failure: No Hx Pacemaker: No Hx Hypertension: Yes Hx Thyroid Disease: No Hx Diabetes: Yes Hx Gastroesophageal Reflux: No Hx Renal Disease: Yes - dialysis Hx Cancer: No Hx of HIV: No Hx Hepatitis C: No Hx MRSA: No Hx Other PMH: Yes - retinal detachment Surgical History: other - hysterectomy,av shunt,eye - Vaccination History Hx Tetanus, Diphtheria Vaccination: Yes Hx Influenza Vaccination: Yes Hx Pneumococcal Vaccination: Yes - Social History Hx Tobacco Use: No Hx Alcohol Use: No Hx Substance Use: No Hx Substance Use Treatment: No Hx Depression: No - Female History Patient : No Family Medical History - Family History Mother Family History: Unknown Living Status: Unknown Hx Family Hypertension: Yes - multiple family members Hx Family Diabetes: Yes - multiple family members Physical Exam - Physical Exam General Appearance: Alert, Comfortable, No apparent distress Eye Exam: right other - decrease vision, left normal Ears, Nose, Throat: hearing grossly normal, normal ENT inspection, normal pharynx Neck: supple, normal inspection Respiratory: lungs clear, normal breath sounds Cardiovascular/Chest: normal peripheral pulses, regular rate, rhythm, no murmur, other - with goo bruits heard and felt right forearm dialysis shunt Peripheral Pulses: radial,right: 2+, radial,left: 2+ Gastrointestinal/Abdominal: non tender, soft Back Exam: no CVA tenderness, no vertebral tenderness Extremity: normal inspection, no pedal edema, no calf tenderness Neurologic: alert, oriented x 3 Skin Exam: normal color, warm/dry Progress - Results/Orders Results/Orders: Discuss test result with patient - EKG/XRAY/CT Xray Comments: soft tissue ultrasound no acute abnormalities Departure - Departure Clinical Impression: Pain from arteriovenous shunt Time of Disposition: 17:44 Disposition: Discharge to Home or Self Care Condition: Fair Departure Forms: ED Discharge - Pt. Copy, Patient Portal Self Enrollment Referrals: AUSTIN CHOUDHARY MD [Primary Care Provider] - 1-2 Weeks Home Medications: Ambulatory Orders Lisinopril 40 mg PO DAILY 08/02/17 Glipizide 2.5 mg PO DAILY 05/05/18 Aspirin [Aspirin EC Low Dose] 81 mg PO DAILY 01/14/19 Calcium 600 mg PO DAILY 01/31/19 Clonazepam 1 mg PO PRN 01/31/19 diphenhydrAMINE HCL [Benadryl] 25 mg PO BEDTIME 01/31/19 Additional Instructions: Return to Emergency room as needed;Continue with all home medications;Keep appointment with Dr. rAmstrong-Vascular Surgeon as scheduled
--- NOTE | 2019-02-10 17:28 | US ---
EXAM: US Right Upper Extremity Non-Vascular, Limited CLINICAL HISTORY: Check blood flow TECHNIQUE: Real-time ultrasound scan of the right upper extremity with image documentation. Color Doppler of the fistula performed. COMPARISON: No relevant prior studies available. FINDINGS: Color Doppler flow identified in the fistula. No fluid identified in the area of scanning. IMPRESSION: Color Doppler flow identified in the fistula. Electronically signed by: Priyanka Butler MD 02/10/2019 5:26 PM CDT
[2019-02-11 10:54] VITALS: BP 183/108; TEMP 98; O2SAT 96
== END 2019-02-10 17:46 | disposition home or self-care (01) ==
LOC: ER 14:22
DX: T82.848A Pain due to vascular prosthetic devices, implants and grafts, initial encounter (principal); Y83.8 Other surgical procedures as the cause of abnormal reaction of the patient, or of later complication, without mention of misadventure at the time of the procedure; M79.631 Pain in right forearm; Z99.2 Dependence on renal dialysis; Z79.82 Long term (current) use of aspirin; Z79.899 Other long term (current) drug therapy; N18.6 End stage renal disease; E11.22 Type 2 diabetes mellitus with diabetic chronic kidney disease; I12.0 Hypertensive chronic kidney disease with stage 5 chronic kidney disease or end stage renal disease

== ENCOUNTER 2019-03-16 19:36 | Emergency (ER) | payer OTHER, MEDICARE ==
[2019-03-16] MEDS ORDERED: CHLORHEXIDINE GLUCONATE 4 % 15 ML UD TOP ONE (19:42)
--- NOTE | 2019-03-16 19:49 | ED.PDOC ---
History of Present Illness - General Time Seen by Provider: 03/16/19 19:46 Source: patient, RN notes reviewed, Vital Signs reviewed, RN/MD - History of Present Illness Initial Comments: Patient presents for evaluation of scalp laceration after falling backwards and hitting her head. She denies loss of consciousness or headaches. She is not on blood thinners. She denies any new vision changes, weakness in the extremities, numbness in the extremities, neck pain, nausea, or vomiting. She states that she is up to date on immunizations. Occurred: just prior to arrival Severity: mild Head Injury Location: occipital Method of Injury: fell Loss of Consciousness: no loss of consciousness Allergies/Adverse Reactions: Allergies NO KNOWN ALLERGY Allergy (Verified 05/31/16 22:02) Home Medications: Ambulatory Orders RX: Lisinopril 40 mg PO DAILY 08/02/17 RX: Glipizide 2.5 mg PO DAILY 05/05/18 Aspirin [Aspirin EC Low Dose] 81 mg PO DAILY 01/14/19 RX: Calcium 600 mg PO DAILY 01/31/19 RX: Clonazepam 1 mg PO PRN 01/31/19 RX: diphenhydrAMINE HCL [Benadryl] 25 mg PO BEDTIME 01/31/19 Review of Systems - Review of Systems Constitutional: States: no symptoms reported EENTM: States: no symptoms reported Respiratory: States: no symptoms reported Cardiology: States: no symptoms reported, chest pain Neurological: States: no symptoms reported Past Medical History (General) - Patient Medical History Hx Seizures: No Hx Stroke: No Hx Dementia: No Hx Asthma: No Hx of COPD: No Hx Cardiac Disorders: No Hx Congestive Heart Failure: No Hx Pacemaker: No Hx Hypertension: Yes Hx Thyroid Disease: No Hx Diabetes: Yes Hx Gastroesophageal Reflux: No Hx Renal Disease: Yes - dialysis Hx Cancer: No Hx of HIV: No Hx Hepatitis C: No Hx MRSA: No - Vaccination History Hx Tetanus, Diphtheria Vaccination: Yes Hx Influenza Vaccination: Yes Hx Pneumococcal Vaccination: Yes - Social History Hx Tobacco Use: No Hx Alcohol Use: No Hx Substance Use: No Hx Substance Use Treatment: No Hx Depression: No - Female History Patient : No Family Medical History - Family History Mother Family History: Unknown Living Status: Unknown Hx Family Hypertension: Yes - multiple family members Hx Family Diabetes: Yes - multiple family members Physical Exam - Physical Exam General Appearance: Alert, Comfortable Head Injury: other - Abrasion to posterior occiput Eye Exam: bilateral normal ENT Exam: no evidence of ENT injury Neck Exam: non-tender, full range of motion, normal alignment, normal inspection Cardiovascular/Respiratory: regular rate, rhythm, no M/R/G, normal peripheral pulses, normal breath sounds, no respiratory distress Gastrointestinal/Abdominal: non tender, soft Extremity: normal range of motion, non-tender Mental Status: alert, oriented x 3 stacker Exam: normal hearing, normal speech, PERRL Coordination/Gait: normal finger to nose, normal gait Motor/Sensory: no motor deficit, no sensory deficit, no pronator drift Progress - Progress Progress: DDx: ICH, Cervical spine fx, scalp laceration, scalp abrasion Patient presents for evaluation of fall. She had no LOC and is not on blood thinners. She has no focal neuro deficits on exam and has no neck tenderness. Therefore imaging was not obtained. She has an abrasion to the posterior occiput, which was repaired with dermabond. I did offer sutures to the patient, but we elected for dermabond. There was no active bleeding after repair, and she is up to date on tetanus immunization status. She will be discharged home with plans for outpatient follow-up. Departure - Departure Clinical Impression: Occipital scalp laceration Time of Disposition: 19:48 Disposition: Discharge to Home or Self Care Condition: Good Departure Forms: ED Discharge - Pt. Copy, Patient Portal Self Enrollment Instructions: Laceration Repair With Glue (DC) Diet: resume usual diet Activity: increase activity as tolerated Referrals: AUSTIN CHOUDHARY MD [Primary Care Provider] - 1-2 Weeks Home Medications: Ambulatory Orders RX: Lisinopril 40 mg PO DAILY 08/02/17 RX: Glipizide 2.5 mg PO DAILY 05/05/18 Aspirin [Aspirin EC Low Dose] 81 mg PO DAILY 01/14/19 RX: Calcium 600 mg PO DAILY 01/31/19 RX: Clonazepam 1 mg PO PRN 01/31/19 RX: diphenhydrAMINE HCL [Benadryl] 25 mg PO BEDTIME 01/31/19 Comments: Luciano Conrad D.O. [facility] #[id number]
[2019-03-16] MEDS ORDERED: NITROGLYCERIN 0.4 MG 25 EA TAB SL ONE (19:53)
[2019-03-16] MEDS ORDERED: ASPIRIN TABLET 325 MG TAB ONE (19:54)
[2019-03-16] MEDS ORDERED: HYDROcodone 5MG/APAP 325MG 1 EA TAB PO ONE (20:04)
[2019-03-16] MEDS ORDERED: HYDROcodone 5MG/APAP 325MG 1 EA TAB ONE (20:05)
[2019-03-17 02:13] VITALS: BP 117/97; TEMP 97.2; O2SAT 99
== END 2019-03-16 20:22 | disposition home or self-care (01) ==
LOC: ER 19:36
DX: S01.01XA Laceration without foreign body of scalp, initial encounter (principal); N18.6 End stage renal disease; E11.22 Type 2 diabetes mellitus with diabetic chronic kidney disease; I12.0 Hypertensive chronic kidney disease with stage 5 chronic kidney disease or end stage renal disease; Z99.2 Dependence on renal dialysis; Z79.82 Long term (current) use of aspirin; Z79.899 Other long term (current) drug therapy; W01.198A Fall on same level from slipping, tripping and stumbling with subsequent striking against other object, initial encounter; Y92.9 Unspecified place or not applicable

== ENCOUNTER 2019-03-18 22:42 | Emergency (ER) | payer OTHER, MEDICARE ==
[2019-03-18] MEDS ORDERED: PROMETHAZINE HCL INJ 25 MG/ML VIAL IM ONE (22:59)
[2019-03-18] MEDS ORDERED: HYDROcodone 10MG/APAP 325MG 1 EA TAB PO ONE (22:59)
[2019-03-18] MEDS ORDERED: cloNIDine HCL 0.1 MG TAB PO ONE (22:59)
[2019-03-18] MEDS ORDERED: INSULIN LISPRO 100 UNITS/ML PEN SUBCU ONE (23:19)
[2019-03-18] MEDS ORDERED: WATER FOR INJ 10 ML VIAL INJ ONE (23:30)
--- NOTE | 2019-03-18 23:39 | CT ---
EXAM: CT Head Without Intravenous Contrast CLINICAL HISTORY: The patient is 53 years old and is Female; fall 2 d ago with headache on blood thinners TECHNIQUE: Axial computed tomography images of the head/brain without intravenous contrast. Sagittal and coronal reformatted images were created and reviewed. This CT exam was performed using one or more of the following dose reduction techniques: automated exposure control, adjustment of the mA and/or kV according to patient size, and/or use of iterative reconstruction technique. COMPARISON: No relevant prior studies available. FINDINGS: BRAIN: A left subdural hemorrhage measuring maximally 1.2 cm is present. Associated 0.7 cm rightward midline shift is present. The lni-white differentiation is maintained. There is no cerebral edema. VENTRICLES: Unremarkable. No ventriculomegaly. BONES/JOINTS: No acute fracture. SOFT TISSUES: Right parietal scalp hematoma is present. SINUSES: Unremarkable as visualized. No acute sinusitis. MASTOID AIR CELLS: Unremarkable as visualized. No mastoid effusion. IMPRESSION: Acute left subdural hemorrhage with associated rightward midline shift. Electronically signed by: Leilani Colorado MD 03/18/2019 11:37 PM CDT
[2019-03-18] MEDS ORDERED: PROMETHAZINE HCL INJ 25 MG in SODIUM CHLORIDE 0.9% 50ML 50 ML IVPB ONE (23:40)
[2019-03-18] MEDS ORDERED: SODIUM CHLORIDE 0.9% 100ML 100 ML IVPB ONE (23:42)
[2019-03-19] MEDS ORDERED: MIDAZOLAM INJ 5 MG/5 ML VIAL ONE (00:09)
--- NOTE | 2019-03-19 00:09 | ED.PDOC ---
History of Present Illness - General Chief Complaint: Headache Stated Complaint: headache Time Seen by Provider: 03/18/19 22:53 Source: patient Exam Limitations: no limitations - History of Present Illness Initial Comments: the patient is a 53-year-old female presented to emergency room secondary to severe headache. No focal neurological deficits initially. She is walking and talking. She does want to lean over due to the headache and she does have some nausea. Headache started about 6 hours prior to arrival. She did fall 2 days ago and sustained a laceration to the right parieto-occipital area. She does have chronic neurological changes from her diabetes including severe peripheral neuropathy as well as vision loss in the right eye and near complete vision loss in the left eye. The patient's mental status worsened as her head pain and nausea progressed. the patient received pain medications and nausea medications which of course did not improve her mental status. Blood pressures were markedly elevated in the 210-220 range on the systolic in but did come down to the 170s to 180s when the patient was able to relax. Timing/Duration: 4-6 hours Severity: severe Improving Factors: nothing Worsening Factors: nothing Associated Symptoms: headaches, malaise, nausea/vomiting Allergies/Adverse Reactions: Allergies NO KNOWN ALLERGY Allergy (Verified 05/31/16 22:02) Home Medications: Ambulatory Orders Lisinopril 40 mg PO DAILY 08/02/17 Glipizide 2.5 mg PO DAILY 05/05/18 Aspirin [Aspirin EC Low Dose] 81 mg PO DAILY 01/14/19 Calcium 600 mg PO DAILY 01/31/19 Clonazepam 1 mg PO PRN 01/31/19 diphenhydrAMINE HCL [Benadryl] 25 mg PO BEDTIME 01/31/19 Review of Systems - Review of Systems Constitutional: States: malaise EENTM: States: no symptoms reported Respiratory: States: no symptoms reported Cardiology: States: no symptoms reported Gastrointestinal/Abdominal: States: nausea, vomiting Genitourinary: States: no symptoms reported Musculoskeletal: States: no symptoms reported Skin: States: no symptoms reported Neurological: States: headache Endocrine: States: no symptoms reported All other Systems: No Change from Baseline Past Medical History (General) - Patient Medical History Hx Seizures: No Hx Stroke: No Hx Dementia: No Hx Asthma: No Hx of COPD: No Hx Cardiac Disorders: No Hx Congestive Heart Failure: No Hx Pacemaker: No Hx Hypertension: Yes Hx Thyroid Disease: No Hx Diabetes: Yes - on dialysis; current BS is 282 Hx Gastroesophageal Reflux: No Hx Renal Disease: Yes - dialysis Hx Cancer: No Hx of HIV: No Hx Hepatitis C: No Hx MRSA: No Surgical History: Hysterectomy - Vaccination History Hx Tetanus, Diphtheria Vaccination: Yes Hx Influenza Vaccination: Yes Hx Pneumococcal Vaccination: Yes - Social History Hx Tobacco Use: No Hx Chewing Tobacco Use: No Hx Alcohol Use: No Hx Substance Use: No Hx Substance Use Treatment: No Hx Depression: No Hx Physical Abuse: No Hx Emotional Abuse: No Hx Suspected Abuse: No - Female History Patient : No Family Medical History - Family History Mother Family History: Unknown Living Status: Unknown Hx Family Hypertension: Yes - multiple family members Hx Family Diabetes: Yes - multiple family members Physical Exam - Physical Exam General Appearance: Alert, Anxious, Obvious distress Eye Exam: bilateral other - chronic vision changes in bilateral eyes. Ears, Nose, Throat: hearing grossly normal, normal pharynx Neck: full range of motion, supple Respiratory: lungs clear, normal breath sounds, no respiratory distress, no ac cessory muscle use Cardiovascular/Chest: normal peripheral pulses, regular rate, rhythm, no edema Peripheral Pulses: radial,right: 2+, radial,left: 2+, dorsalis pedis,right: 2+, dorsalis pedis,left: 2+ Gastrointestinal/Abdominal: non tender, soft Rectal Exam: deferred Back Exam: no CVA tenderness Extremity: normal range of motion, no pedal edema, no calf tenderness, inflammation - hronic arthritic changes in extremities., other - fistula in right upper extremity for dialysis. Neurologic: alert, oriented x 3 Skin Exam: normal color Comments: Vital Signs - 24 hr 03/18/19 03/18/19 22:56 23:36 Temperature 96.9 F L 97.2 F L Pulse Rate [ 112 H 118 H left] Respiratory 20 20 Rate Blood Pressure 212/118 183/110 [left] O2 Sat by Pulse 99 98 Oximetry Progress - Progress Progress: 03/19/19 00:11 the patient is a 53-year-old female presenting to the emergency room secondary severe headache starting 4-6 hours prior to arrival. Headache progressed as an symptoms of nausea and vomiting. Mental status deteriorated. The patient ultimately required intubation for protection of airway in transit. The patient is being transferred to [facility] for neurosurgical intervention. Blood pressures have remained significantly elevated. systolics have dropped down below 180 on a couple of points. Patient required intubation for protection of airway due to altered mental status. Risks benefits have been explained to familyover the phone as they had already left to go to the receiving hospital. Patient wasmedicated with 10 mg of etomidate and 10 mg of extra volume. 7.5 ET tube was placed to 20 cm to the gum. Good color change. Good oxygenation. Post intubation chest x-ray shows appropriate placement. Transferring for neurosurgical care. Critical care time is 45 minutes for this patient. meera de la fuente [id number] - Results/Orders Results/Orders: CT of the head shows a left sided subdural hematoma with midline shift. Width his 1.2 cm at maximum. Laboratory Results - last 24 hr 03/18/19 03/18/19 03/18/19 23:03 23:30 23:30 WBC 7.5 RBC 3.66 L Hgb 11.9 L Hct 36.0 MCV 98.5 MCH 32.6 H MCHC 33.1 RDW 15.9 H Plt Count 245 MPV 7.4 Absolute Neuts (auto) 6.00 Absolute Lymphs (auto) 0.70 L Absolute Monos (auto) 0.50 Absolute Eos (auto) 0.20 Absolute Basos (auto) 0.10 Neutrophils % 79.9 H Lymphocytes % 9.9 L Monocytes % 6.8 Eosinophils % 2.4 Basophils % 1.0 PT 12.3 H INR 1.23 H PTT (SP) 27.2 Sodium Potassium Chloride Carbon Dioxide Anion Gap BUN Creatinine BUN/Creatinine Ratio POC Glucose 282 H Random Glucose Serum Osmolality Calcium Total Bilirubin AST ALT Alkaline Phosphatase Serum Total Protein Albumin Globulin Albumin/Globulin Ratio 03/18/19 23:30 WBC RBC Hgb Hct MCV MCH MCHC RDW Plt Count MPV Absolute Neuts (auto) Absolute Lymphs (auto) Absolute Monos (auto) Absolute Eos (auto) Absolute Basos (auto) Neutrophils % Lymphocytes % Monocytes % Eosinophils % Basophils % PT INR PTT (SP) Sodium 135 Potassium 4.0 Chloride 92 L Carbon Dioxide 28 Anion Gap 19.0 H BUN 27 H Creatinine 2.84 H BUN/Creatinine Ratio 9.5 L POC Glucose Random Glucose 268 H Serum Osmolality 284.6 Calcium 9.3 Total Bilirubin 1.4 H AST 24 ALT 26 Alkaline Phosphatase 178 H Serum Total Protein 8.3 H Albumin 3.5 Globulin 4.8 H Albumin/Globulin Ratio 0.7 L Departure - Departure Clinical Impression: Subdural hematoma Disposition: Transfer to Hospital Condition: Poor Departure Forms: ED Discharge - Pt. Copy, Patient Portal Self Enrollment Referrals: AUSTIN CHOUDHARY MD [Primary Care Provider] - 1-2 Weeks Home Medications: Ambulatory Orders Lisinopril 40 mg PO DAILY 08/02/17 Glipizide 2.5 mg PO DAILY 05/05/18 Aspirin [Aspirin EC Low Dose] 81 mg PO DAILY 01/14/19 Calcium 600 mg PO DAILY 01/31/19 Clonazepam 1 mg PO PRN 01/31/19 diphenhydrAMINE HCL [Benadryl] 25 mg PO BEDTIME 01/31/19 Transfer to Outside Facility - Transfer Information Accepting Provider:: dr alex Accepting Facility: [facility] Reason for Transfer: required specialist not available
[2019-03-19 00:20] VITALS: TEMP 97.4
[2019-03-19] MEDS ORDERED: METOPROLOL TARTRATE INJ 5 MG/5 ML VIAL IV ONE ×3 (00:20→00:49)
[2019-03-19 00:21] VITALS: BP 235/100
[2019-03-19] MEDS ORDERED: VECURONIUM BROMIDE 10 MG VIAL IV ONE (00:21)
[2019-03-19] MEDS ORDERED: ETOMIDATE INJECTION 2 MG/ML 20ML VIAL IV ONE (00:21)
--- NOTE | 2019-03-19 00:25 | RAD ---
EXAM: XR Chest, 1 View CLINICAL HISTORY: The patient is 53 years old and is Female; ET tube verification TECHNIQUE: Frontal view of the chest. COMPARISON: Chest radiograph January 31, 2019. FINDINGS: LUNGS: Mild prominence of the interstitial markings is noted. PLEURAL SPACE: Unremarkable. No pneumothorax. HEART: The cardiac silhouette is enlarged. MEDIASTINUM: Unremarkable. BONES/JOINTS: Unremarkable. TUBES, LINES AND DEVICES: Endotracheal tube is present between the thoracic inlet and marilu. Right IJ Vas-Cath is present with the tip in the SVC. IMPRESSION: 1. Support structures as described. 2. Findings suggestive of mild vascular congestion. Electronically signed by: Leilani Colorado MD 03/19/2019 12:23 AM CDT
[2019-03-19] MEDS ORDERED: MIDAZOLAM INJ 5 MG/5 ML VIAL IV ONE (00:51)
[2019-03-19 01:07] VITALS: O2SAT 99
== END 2019-03-19 00:50 | disposition short-term general hospital (02) ==
LOC: ER 22:42
DX: S06.5X0A Traumatic subdural hemorrhage without loss of consciousness, initial encounter (principal); R11.2 Nausea with vomiting, unspecified; E11.22 Type 2 diabetes mellitus with diabetic chronic kidney disease; I12.0 Hypertensive chronic kidney disease with stage 5 chronic kidney disease or end stage renal disease; N18.6 End stage renal disease; Z99.2 Dependence on renal dialysis; Z79.82 Long term (current) use of aspirin; Z79.899 Other long term (current) drug therapy; W19.XXXA Unspecified fall, initial encounter; Y92.9 Unspecified place or not applicable
CPT/HCPCS: 31500; 36415; 70450; 71045; 80053; 82948; 85025; 85610; 85730; 94770; A4216; J1815; J2250; J2550; J7050